=== PATIENT | female | born 1975 | race Caucasian/White ===

== ENCOUNTER 2018-07-26 22:03 | Emergency (ER) | payer MEDICAID ==
[~2018-07-26] VITALS: Ht 170.2 cm; Wt 100.0 kg
[2018-07-26] MEDS ORDERED: FAMOTIDINE 20MG/2ML VIAL IV STA (22:43)
[2018-07-26 23:02] LABS: CHLORIDE 97 mEq/L (98-107)
[2018-07-26 23:03] LABS: BASOPHILS % 0.6 % (0.0-2.0); EOSINOPHILS % 0.1 % (0.0-5.0); HEMATOCRIT. 27.8 % (36.0-48.0); HEMOGLOBIN. 8.4 g/dL (12.0-16.0); LYMPHOCYTES % 31.9 % (20.0-50.0); MEAN CORPUSCULAR HEMOGLOBIN 21.1 pg (28.0-32.0); MEAN CORPUSCULAR VOLUME 70.1 fL (81.0-99.0); MEAN PLATELET VOLUME 8.1 fl (7.4-10.4); MONOCYTES % 14.6 % (2.0-8.0); NEUTROPHILS % 52.8 % (40.0-76.0); PLATELET 300 x1000/uL (130-400); RED BLOOD CELL COUNT 3.97 mill/uL (4.2-5.4); RED CELL DISTRIBUTION WIDTH 16.5 % (11.6-14.6)
[2018-07-26 23:04] LABS: HCG SCREEN NEGATIVE
[2018-07-26] MEDS ORDERED: SODIUM CHLORIDE 0.9% 1,000 ML IV ONE (23:45)
[2018-07-26] MEDS ORDERED: ONDANSETRON HCL 4MG/2ML INJ IV ONE (23:45)
[2018-07-27] MEDS ORDERED: IOHEXOL-300 100 ML BOTTLE ONE (02:03)
[2018-07-27 02:49] LABS: CLARITY URINE CLEAR (CLEAR); COLOR URINE YELLOW (YELLOW); KETONES URINE 1+ (NEGATIVE); LEUKOCYTE ESTERASE URINE NEGATIVE (NEGATIVE); NITRITE URINE POSITIVE (NEGATIVE); OCCULT BLOOD URINE NEGATIVE (NEGATIVE); PH URINE 7.5 (4.5-8.0); PROTEIN URINE TRACE (NEGATIVE); SPECIFIC GRAVITY URINE 1.079 (1.005-1.030)
[2018-07-27 03:05] LABS: *AMPHETAMINES SCREEN URINE NEGATIVE (NEGATIVE); *BENZODIAZEPINES SCREEN URINE NEGATIVE (NEGATIVE); *COCAINE SCREEN URINE NEGATIVE (NEGATIVE); METHADONE URINE SCREEN NEGATIVE (NEGATIVE); OPIATES URINE SCREEN NEGATIVE (NEGATIVE)
[2018-07-27 03:06] LABS: PHENCYCLIDINE URINE SCREEN NEGATIVE (NEGATIVE)
[2018-07-27 03:08] LABS: *BARBITURATES SCREEN URINE PRESUMTIVE POSITIVE (NEGATIVE); CANNABINOID URINE SCREEN PRESUMTIVE POSITIVE (NEGATIVE)
[2018-07-27] MEDS ORDERED: HYDROCODONE/ACETAMINOPHEN 5/325MG TABLET PO ONE (04:15)
[2018-07-27 04:28] VITALS: BP 109/55
== END 2018-07-27 04:31 | disposition home or self-care (01) ==
LOC: ER 22:03
DX: I88.0 Nonspecific mesenteric lymphadenitis (principal); K21.0 Gastro-esophageal reflux disease with esophagitis; R10.13 Epigastric pain; Z90.49 Acquired absence of other specified parts of digestive tract; Z87.891 Personal history of nicotine dependence
CPT/HCPCS: 36415; 74177; 80053; 80305; 81003; 83690; 84703; 85025; 96374; 96375; 99284; J2405; J3490; J7030; Q9967; Z7610

== ENCOUNTER 2022-02-07 12:51 | Emergency (ER) | payer MEDICAID ==
[~2022-02-07] VITALS: Ht 170.2 cm; Wt 137.0 kg
[2022-02-07] MEDS ORDERED: IBUPROFEN 600MG TABLET PO STA (14:02)
[2022-02-07 15:30] LABS: CLARITY URINE CLEAR (CLEAR); COLOR URINE YELLOW (YELLOW); KETONES URINE NEGATIVE (NEGATIVE); LEUKOCYTE ESTERASE URINE TRACE (NEGATIVE); NITRITE URINE NEGATIVE (NEGATIVE); OCCULT BLOOD URINE NEGATIVE (NEGATIVE); PROTEIN URINE NEGATIVE (NEGATIVE); SPECIFIC GRAVITY URINE 1.006 (1.005-1.030); UROBILINOGEN URINE 0.2 E.U./dL (0.2-1.0)
[2022-02-07 15:42] LABS: BASOPHILS % 0.5 % (0.0-2.0); EOSINOPHILS % 0.1 % (0.0-5.0); HEMATOCRIT. 34.5 % (36.0-48.0); HEMOGLOBIN. 10.7 g/dL (12.0-16.0); LYMPHOCYTES % 27.3 % (20.0-50.0); MEAN CORPUSCULAR HEMOGLOBIN 21.8 pg (28.0-32.0); MEAN CORPUSCULAR VOLUME 70.7 fL (81.0-99.0); MEAN PLATELET VOLUME 8.9 fl (7.4-10.4); MONOCYTES % 9.8 % (2.0-8.0); NEUTROPHILS % 62.3 % (40.0-76.0); PLATELET 244 x1000/uL (130-400); RED BLOOD CELL COUNT 4.89 mill/uL (4.2-5.4); RED CELL DISTRIBUTION WIDTH 17.8 % (11.6-14.6)
[2022-02-07 16:01] LABS: CHLORIDE 104 mEq/L (98-107)
[2022-02-07] MEDS ORDERED: IBUP-2029 MT (16:42)
[2022-02-07 17:01] VITALS: BP 126/75
== END 2022-02-07 17:03 | disposition home or self-care (01) ==
LOC: ER 12:51
DX: R10.9 Unspecified abdominal pain (principal); N83.201 Unspecified ovarian cyst, right side; K21.9 Gastro-esophageal reflux disease without esophagitis; Z90.49 Acquired absence of other specified parts of digestive tract
CPT/HCPCS: 36415; 74176; 80053; 81003; 81025; 85025; 99284

== ENCOUNTER 2022-09-13 15:06 | Emergency (ER) | payer MEDICAID ==
[~2022-09-13] VITALS: Ht 170.2 cm; Wt 136.0 kg
[~2022-09-13 15:06] MED LIST: IBUP-2029 MT
[2022-09-13] MEDS ORDERED: MORPHINE SULFATE 4 MG/ML CPJ (NOT FOR IM USE) IV STA (15:59)
[2022-09-13] MEDS ORDERED: ONDANSETRON HCL 4MG/2ML INJ IV STA (15:59)
[2022-09-13] MEDS ORDERED: SODIUM CHLORIDE 0.9% 1,000 ML IV ONE (16:00)
[2022-09-13 16:15] LABS: BASOPHILS % 0.5 % (0.0-2.0); EOSINOPHILS % 0.1 % (0.0-5.0); HEMATOCRIT. 38.6 % (36.0-48.0); HEMOGLOBIN. 12.4 g/dL (12.0-16.0); LYMPHOCYTES % 19.8 % (20.0-50.0); MEAN CORPUSCULAR HEMOGLOBIN 22.3 pg (28.0-32.0); MEAN CORPUSCULAR VOLUME 69.4 fL (81.0-99.0); MEAN PLATELET VOLUME 8.8 fl (7.4-10.4); MONOCYTES % 8.6 % (2.0-8.0); PLATELET 338 x1000/uL (130-400); RED BLOOD CELL COUNT 5.57 mill/uL (4.2-5.4); RED CELL DISTRIBUTION WIDTH 17.7 % (11.6-14.6)
[2022-09-13 16:24] LABS: CHLORIDE 97 mEq/L (98-107)
[2022-09-13 16:26] LABS: HCG SCREEN NEGATIVE
[2022-09-13 16:42] LABS: PLATELET ESTIMATE NORMAL
[2022-09-13] MEDS ORDERED: POTASSIUM CHLORIDE 20MEQ TABLET SR PO ONE (18:30)
[2022-09-13 19:01] VITALS: BP 146/74
[2022-09-13] MEDS ORDERED: POTA-205 MT (19:41)
[2022-09-13] MEDS ORDERED: ONDA4TAB11 PO (20:03)
[2022-09-13] MEDS ORDERED: TOPUD MT (20:15)
== END 2022-09-13 20:46 | disposition home or self-care (01) ==
LOC: ER 15:06
DX: R10.9 Unspecified abdominal pain (principal); E87.6 Hypokalemia; Z87.19 Personal history of other diseases of the digestive system; Z90.49 Acquired absence of other specified parts of digestive tract
CPT/HCPCS: 36415; 71045; 74176; 80053; 83690; 83735; 84703; 85025; 93005; 96361; 96374; 96375; 99285; J2270; J2405; J7030; Z7610

== ENCOUNTER 2022-10-23 18:16 | Emergency (ER) | payer MEDICAID ==
[~2022-10-23] VITALS: Ht 170.2 cm; Wt 139.0 kg
[~2022-10-23 18:16] MED LIST changes: +ONDA4TAB11 PO; +POTA-205 MT; +TOPUD MT
[2022-10-23 18:55] LABS: BASOPHILS % 0.3 % (0.0-2.0); EOSINOPHILS % 0.1 % (0.0-5.0); HEMATOCRIT. 34.3 % (36.0-48.0); HEMOGLOBIN. 10.9 g/dL (12.0-16.0); LYMPHOCYTES % 22.9 % (20.0-50.0); MEAN CORPUSCULAR VOLUME 69.3 fL (81.0-99.0); MEAN PLATELET VOLUME 8.9 fl (7.4-10.4); MONOCYTES % 6.6 % (2.0-8.0); NEUTROPHILS % 70.1 % (40.0-76.0); PLATELET 201 x1000/uL (130-400); RED BLOOD CELL COUNT 4.95 mill/uL (4.2-5.4); RED CELL DISTRIBUTION WIDTH 17.4 % (11.6-14.6)
[2022-10-23 19:09] LABS: CHLORIDE 109 mEq/L (98-107)
[2022-10-23 19:34] LABS: PLATELET ESTIMATE NORMAL
[2022-10-23 19:45] LABS: CLARITY URINE CLEAR (CLEAR); COLOR URINE YELLOW (YELLOW); KETONES URINE NEGATIVE (NEGATIVE); LEUKOCYTE ESTERASE URINE NEGATIVE (NEGATIVE); NITRITE URINE NEGATIVE (NEGATIVE); OCCULT BLOOD URINE NEGATIVE (NEGATIVE); PROTEIN URINE NEGATIVE (NEGATIVE); SPECIFIC GRAVITY URINE 1.006 (1.005-1.030); UROBILINOGEN URINE 0.2 E.U./dL (0.2-1.0)
[2022-10-23] MEDS ORDERED: DIPHENHYDRAMINE 50MG/ML VIAL IV ONE (19:45)
[2022-10-23] MEDS ORDERED: PROCHLORPERAZINE 10MG/2ML VIAL IV PRN (19:45)
[2022-10-23] MEDS: SODIUM CHLORIDE 0.9% 1,000 ML IV NR ×3 (21:39→22:47)
[2022-10-23] MEDS ORDERED: SUCR1TAB MT (22:13)
[2022-10-23] MEDS ORDERED: PROT40 MT (22:13)
[2022-10-23] MEDS ORDERED: PANTOPRAZOLE SODIUM 40 MG/VIAL IV ONE (22:15)
[2022-10-23] MEDS ORDERED: SUCRALFATE 1G TABLET PO SCH (22:15)
[2022-10-23 22:56] VITALS: BP 112/58
== END 2022-10-24 00:44 | disposition home or self-care (01) ==
LOC: ER 18:16
DX: R10.84 Generalized abdominal pain (principal); R11.2 Nausea with vomiting, unspecified; Z90.89 Acquired absence of other organs
CPT/HCPCS: 36415; 80053; 81003; 81025; 83690; 84484; 85025; 93005; 96374; 96375; 99284; C9113; J1200

== ENCOUNTER 2024-02-14 15:06 | Inpatient (IN) | payer MEDICAID ==
[~2024-02-14] VITALS: Ht 167.6 cm; Wt 147.0 kg
[~2024-02-14 15:06] MED LIST changes: +CIPR-263 MT; +DOCU-138 MT; +FERR-71 MT; -IBUP-2029 MT; +LIP40 MT; +ONDA-239 PO; -ONDA4TAB11 PO; +PROT40 MT; +SUCR1TAB MT
[2024-02-14 15:45] LABS: BASOPHILS % 0.5 % (0.0-2.0); HEMATOCRIT. 29.8 % (36.0-48.0); HEMOGLOBIN. 9.3 g/dL (12.0-16.0); LYMPHOCYTES % 14.4 % (20.0-50.0); MEAN CORPUSCULAR HEMOGLOBIN 20.8 pg (28.0-32.0); MEAN CORPUSCULAR HGB CONC 31.2 g/dL (31.0-37.0); MEAN CORPUSCULAR VOLUME 66.5 fL (81.0-99.0); MEAN PLATELET VOLUME 8.8 fl (7.4-10.4); MONOCYTES % 3.3 % (2.0-8.0); NEUTROPHILS % 81.8 % (40.0-76.0); PLATELET 264 x1000/uL (130-400); RED BLOOD CELL COUNT 4.48 mill/uL (4.2-5.4); RED CELL DISTRIBUTION WIDTH 19.3 % (11.6-14.6); WHITE BLOOD COUNT 9.3 x1000/uL (4.5-11.0)
[2024-02-14 15:46] LABS: DIFFERENTIAL COMMENT 1
[2024-02-14 15:52] LABS: CHLORIDE 105 mEq/L (98-107); POTASSIUM 3.3 mEq/L (3.5-5.1); SODIUM 137 mEq/L (136-145)
[2024-02-14 15:53] LABS: CALCIUM 9.4 mg/dL (8.7-10.4); CARBON DIOXIDE 24 mEq/L (21-32)
[2024-02-14 15:58] LABS: CREATININE 0.7 mg/dL (0.6-1.0); GLUCOSE 117 mg/dL (70-105); UREA NITROGEN BLOOD 13 mg/dL (9-23)
[2024-02-14 16:00] LABS: ALANINE AMINOTRANSFERASE 27 IU/L (10-49); ALBUMIN 4.4 g/dL (3.2-4.8); ASPARTATE AMINOTRANSFERASE 47 IU/L (<34); BILIRUBIN DIRECT 0.2 mg/dL (<=3.0)
[2024-02-14 16:01] LABS: BILIRUBIN TOTAL 0.6 mg/dL (0.1-1.0); PROTEIN TOTAL 8.2 g/dL (6.0-8.3)
[2024-02-14] MEDS: METOCLOPRAMIDE HCL 10MG/2ML VIAL IV ONE (18:00)
[2024-02-14] MEDS: METOCLOPRAMIDE HCL 10MG/2ML VIAL IM ONE (18:38)
[2024-02-14] MEDS: SODIUM CHLORIDE 0.9% 1,000 ML IV ONE (19:39)
[2024-02-14 21:27] LABS: GLUCOSE URINE NEGATIVE (NEGATIVE); KETONES URINE 2+ (NEGATIVE)
[2024-02-14 21:32] LABS: CLARITY URINE CLOUDY (CLEAR); COLOR URINE RED (YELLOW)
[2024-02-14 21:33] LABS: OCCULT BLOOD URINE 3+ (NEGATIVE); PH URINE 5.5 (4.5-8.0); PROTEIN URINE 2+ (NEGATIVE); SPECIFIC GRAVITY URINE 1.023 (1.005-1.030)
[2024-02-14 21:34] LABS: LEUKOCYTE ESTERASE URINE 1+ (NEGATIVE); NITRITE URINE NEGATIVE (NEGATIVE); UROBILINOGEN URINE 0.2 E.U./dL (0.2-1.0)
[2024-02-14 21:45] LABS: BACTERIA URINE 1+; RBC URINE TNTC /hpf (0-2); SQUAMOUS EPITHELIAL CELL URINE 1+ /lpf (RARE/1+)
[2024-02-14] MEDS: PANTOPRAZOLE SODIUM 40 MG/VIAL IV SCH (21:48)
[2024-02-14] MEDS: METOCLOPRAMIDE HCL 10MG/2ML VIAL IV NR (23:08)
[2024-02-15] VITALS (7 sets, daily range): BP systolic 118–141; BP diastolic 52–86; PULSE 70–83; RESP 18–20; TEMP 36.114–37.28076; O2SAT 97–99
[2024-02-15] MEDS: ONDANSETRON HCL 4MG/2ML INJ IV PRN (02:45)
[2024-02-15] MEDS: DEXT 5%/0.45% NACL KCL 20MEQ/L 1,000 ML IV SCH (04:32)
[2024-02-15 06:04] LABS: BASOPHILS % 0.4 % (0.0-2.0); EOSINOPHILS % 0.2 % (0.0-5.0); HEMATOCRIT. 26.8 % (36.0-48.0); HEMOGLOBIN. 8.2 g/dL (12.0-16.0); LYMPHOCYTES % 44.7 % (20.0-50.0); MEAN CORPUSCULAR HEMOGLOBIN 20.4 pg (28.0-32.0); MEAN CORPUSCULAR HGB CONC 30.7 g/dL (31.0-37.0); MEAN CORPUSCULAR VOLUME 66.7 fL (81.0-99.0); MEAN PLATELET VOLUME 9.3 fl (7.4-10.4); MONOCYTES % 11.1 % (2.0-8.0); NEUTROPHILS % 43.6 % (40.0-76.0); PLATELET 218 x1000/uL (130-400); RED BLOOD CELL COUNT 4.03 mill/uL (4.2-5.4); RED CELL DISTRIBUTION WIDTH 19.4 % (11.6-14.6); WHITE BLOOD COUNT 7.9 x1000/uL (4.5-11.0)
[2024-02-15 06:05] LABS: CHLORIDE 107 mEq/L (98-107); POTASSIUM 2.9 mEq/L (3.5-5.1); SODIUM 139 mEq/L (136-145)
[2024-02-15 06:07] LABS: CALCIUM 9.1 mg/dL (8.7-10.4); CARBON DIOXIDE 25 mEq/L (21-32)
[2024-02-15 06:12] LABS: CREATININE 0.7 mg/dL (0.6-1.0); GLUCOSE 91 mg/dL (70-105); UREA NITROGEN BLOOD 11 mg/dL (9-23)
[2024-02-15 06:13] LABS: ALANINE AMINOTRANSFERASE 26 IU/L (10-49); ALBUMIN 3.9 g/dL (3.2-4.8); ASPARTATE AMINOTRANSFERASE 43 IU/L (<34)
[2024-02-15 06:14] LABS: BILIRUBIN DIRECT 0.2 mg/dL (<=3.0); BILIRUBIN TOTAL 0.6 mg/dL (0.1-1.0); PROTEIN TOTAL 7.3 g/dL (6.0-8.3)
[2024-02-15 07:10] LABS: DIFFERENTIAL COMMENT 1
[2024-02-15 07:31] LABS: ADD RBC MORPHOLOGY YES
[2024-02-15] MEDS: PANTOPRAZOLE SODIUM 40 MG/VIAL IV SCH (08:55)
[2024-02-15] MEDS: KETOROLAC 15MG/ML VIAL IV NR (11:25)
[2024-02-15 12:06] LABS: MICROCYTOSIS 2+; PLATELET ESTIMATE NORMAL
[2024-02-15 14:31] LABS: *AMPHETAMINES SCREEN URINE NEGATIVE (NEGATIVE)
[2024-02-15 14:32] LABS: *BARBITURATES SCREEN URINE NEGATIVE (NEGATIVE); *BENZODIAZEPINES SCREEN URINE NEGATIVE (NEGATIVE); *COCAINE SCREEN URINE NEGATIVE (NEGATIVE)
[2024-02-15 14:33] LABS: CANNABINOID URINE SCREEN PRESUMPTIVE POSITIVE (NEGATIVE); ECSTASY MDMA SCREEN URINE NEGATIVE (NEGATIVE); METHADONE URINE SCREEN NEGATIVE (NEGATIVE); OPIATES URINE SCREEN PRESUMPTIVE POSITIVE (NEGATIVE); PHENCYCLIDINE URINE SCREEN NEGATIVE (NEGATIVE)
[2024-02-16] VITALS: BP 129/69; PULSE 70; RESP 18; TEMP 36.55848; O2SAT 100
[2024-02-16] MEDS: ACETAMINOPHEN 325MG TABLET PO PRN (02:40)
[2024-02-16 06:31] LABS: CHLORIDE 108 mEq/L (98-107); SODIUM 140 mEq/L (136-145)
[2024-02-16 06:33] LABS: CARBON DIOXIDE 24 mEq/L (21-32)
[2024-02-16 06:39] LABS: CREATININE 0.6 mg/dL (0.6-1.0); GLUCOSE 88 mg/dL (70-105); UREA NITROGEN BLOOD 8 mg/dL (9-23)
[2024-02-16 06:40] LABS: ALANINE AMINOTRANSFERASE 31 IU/L (10-49)
[2024-02-16 06:41] LABS: ALBUMIN 3.8 g/dL (3.2-4.8); ASPARTATE AMINOTRANSFERASE 45 IU/L (<34); BILIRUBIN DIRECT 0.2 mg/dL (<=3.0); BILIRUBIN TOTAL 0.5 mg/dL (0.1-1.0); PROTEIN TOTAL 6.7 g/dL (6.0-8.3)
[2024-02-16 06:43] LABS: BASOPHILS % 0.5 % (0.0-2.0); EOSINOPHILS % 0.9 % (0.0-5.0); HEMATOCRIT. 25.4 % (36.0-48.0); HEMOGLOBIN. 7.7 g/dL (12.0-16.0); LYMPHOCYTES % 45.2 % (20.0-50.0); MEAN CORPUSCULAR HEMOGLOBIN 20.3 pg (28.0-32.0); MEAN CORPUSCULAR HGB CONC 30.2 g/dL (31.0-37.0); MEAN CORPUSCULAR VOLUME 67.4 fL (81.0-99.0); MEAN PLATELET VOLUME 9.3 fl (7.4-10.4); MONOCYTES % 11.1 % (2.0-8.0); NEUTROPHILS % 42.3 % (40.0-76.0); PLATELET 198 x1000/uL (130-400); RED BLOOD CELL COUNT 3.77 mill/uL (4.2-5.4); RED CELL DISTRIBUTION WIDTH 18.6 % (11.6-14.6); WHITE BLOOD COUNT 6.1 x1000/uL (4.5-11.0)
[2024-02-16 07:16] LABS: DIFFERENTIAL COMMENT 1
[2024-02-16 08:00] VITALS: BP 120/62; PULSE 79; RESP 18; TEMP 35.5584; O2SAT 100
[2024-02-16] MEDS: POTASSIUM CHLORIDE 20MEQ TABLET SR PO NR (10:36)
[2024-02-16] MEDS: LORAZEPAM 1MG TABLET PO PRN (10:37)
[2024-02-16 12:00] VITALS: BP 144/89; PULSE 72; RESP 18; TEMP 36.61404; O2SAT 100
[2024-02-16] MEDS: METOCLOPRAMIDE HCL 10MG/2ML VIAL IV SCH (13:44)
[2024-02-16] MEDS ORDERED: METOCLOPRAMIDE HCL 10MG/2ML VIAL IV SCH (15:00)
[2024-02-16 16:00] VITALS: BP 141/83; PULSE 69; RESP 18; TEMP 36.50292; O2SAT 97
[2024-02-16 20:00] VITALS: BP 185/92; PULSE 79; RESP 18; TEMP 37.503; O2SAT 98
[2024-02-16] MEDS: CEFTRIAXONE 1GM/50ML 50 ML IV SCH (21:37)
[2024-02-16] MEDS: IRON SUCROSE COMPLEX 100 MG/5 ML ML IV SCH (21:38)
[2024-02-16] MEDS: DICYCLOMINE HCL 10MG CAPSULE PO SCH (23:59)
[2024-02-17] VITALS (8 sets, daily range): BP systolic 110–176; BP diastolic 59–90; PULSE 79–94; RESP 18–22; TEMP 36.50292–37.503; O2SAT 98–99
[2024-02-17] MEDS: HYDRALAZINE 20MG/ML VIAL IV PRN (02:17)
[2024-02-17 10:55] LABS: HEMATOCRIT 27.5 % (36.0-48.0); HEMOGLOBIN 8.5 g/dL (12.0-16.0); MEAN CORPUSCULAR HEMOGLOBIN 20.9 pg (28.0-32.0); MEAN CORPUSCULAR HGB CONC 31.1 g/dL (31.0-37.0); MEAN CORPUSCULAR VOLUME 67.3 fL (81.0-99.0); PLATELET 230 x1000/uL (130-400); RED BLOOD CELL COUNT 4.08 mill/uL (4.2-5.4); WHITE BLOOD COUNT 5.3 x1000/uL (4.5-11.0)
[2024-02-17 11:01] LABS: CALCIUM 8.8 mg/dL (8.7-10.4); CARBON DIOXIDE 26 mEq/L (21-32); CHLORIDE 105 mEq/L (98-107); POTASSIUM 2.9 mEq/L (3.5-5.1); SODIUM 136 mEq/L (136-145)
[2024-02-17 11:07] LABS: CREATININE 0.7 mg/dL (0.6-1.0); GLUCOSE 114 mg/dL (70-105)
[2024-02-17 11:14] LABS: UREA NITROGEN BLOOD < 5 mg/dL (9-23)
[2024-02-17] MEDS: KCL 20MEQ/100ML PREMIX 100 ML IV SCH (13:29)
[2024-02-18] VITALS: BP 108/65; PULSE 81; RESP 20; TEMP 36.55848; O2SAT 98
[2024-02-18 03:26] LABS: BASOPHILS % 0.7 % (0.0-2.0); EOSINOPHILS % 0.2 % (0.0-5.0); HEMATOCRIT. 28.7 % (36.0-48.0); HEMOGLOBIN. 8.5 g/dL (12.0-16.0); LYMPHOCYTES % 44.5 % (20.0-50.0); MEAN CORPUSCULAR HEMOGLOBIN 20.3 pg (28.0-32.0); MEAN CORPUSCULAR HGB CONC 29.7 g/dL (31.0-37.0); MEAN CORPUSCULAR VOLUME 68.5 fL (81.0-99.0); MEAN PLATELET VOLUME 9.1 fl (7.4-10.4); MONOCYTES % 12.9 % (2.0-8.0); NEUTROPHILS % 41.7 % (40.0-76.0); PLATELET 237 x1000/uL (130-400); RED BLOOD CELL COUNT 4.19 mill/uL (4.2-5.4); RED CELL DISTRIBUTION WIDTH 19.5 % (11.6-14.6); WHITE BLOOD COUNT 6.3 x1000/uL (4.5-11.0)
[2024-02-18 03:27] LABS: CHLORIDE 104 mEq/L (98-107); SODIUM 137 mEq/L (136-145)
[2024-02-18 03:28] LABS: CARBON DIOXIDE 26 mEq/L (21-32)
[2024-02-18 03:33] LABS: CREATININE 0.8 mg/dL (0.6-1.0); GLUCOSE 89 mg/dL (70-105); PROTHROMBIN TIME 11.4 sec (9.6-11.0); UREA NITROGEN BLOOD 6 mg/dL (9-23)
[2024-02-18 03:52] LABS: DIFFERENTIAL COMMENT 1
[2024-02-18 04:00] VITALS: BP 114/79; PULSE 85; RESP 20; TEMP 36.3918; O2SAT 98
[2024-02-18 08:00] VITALS: BP 116/57; PULSE 68; RESP 20; TEMP 36.72516; O2SAT 97
[2024-02-18] MEDS: KCL 10MEQ/50ML PREMIX 50 ML IV SCH (09:00)
[2024-02-18] MEDS ORDERED: PROPOFOL 200MG/20ML VIAL IV ONE (10:43)
[2024-02-18] MEDS: ONDANSETRON HCL 4MG/2ML INJ IV PRN (11:17)
[2024-02-18 12:50] VITALS: BP 148/67; PULSE 75; RESP 18; TEMP 36.72516; O2SAT 98
[2024-02-18 13:10] LABS: POTASSIUM 3.2 mEq/L (3.5-5.1)
[2024-02-18 13:15] LABS: IRON 281 ug/dL (50-170)
[2024-02-18 13:18] LABS: TOTAL IRON BINDING CAPACITY 371 ug/dl (250-425)
[2024-02-18 13:20] LABS: FERRITIN 117 ng/mL (10-291); FOLIC ACID (FOLATE) SERUM > 20.00 ng/mL (>5.38); VITAMIN B12 SERUM 801 pg/mL (211-911)
[2024-02-18] MEDS: MORPHINE SULFATE 2 MG/ML INJ (NOT FOR IM USE) IV SCH (13:48)
[2024-02-18 16:00] VITALS: BP 138/88; PULSE 74; RESP 18; TEMP 36.61404; O2SAT 99
[2024-02-18 20:00] VITALS: BP 128/68; PULSE 82; RESP 18; TEMP 36.55848; O2SAT 98
[2024-02-19] VITALS: BP 114/70; PULSE 79; RESP 19; TEMP 36.72516; O2SAT 98
[2024-02-19 04:00] VITALS: BP 120/63; PULSE 84; RESP 18; TEMP 36.3918; O2SAT 98
[2024-02-19 07:43] VITALS: BP 131/68; PULSE 86; RESP 18; TEMP 36.61404; O2SAT 99
[2024-02-19 12:00] VITALS: BP 135/60; PULSE 86; RESP 18; TEMP 35.5584; O2SAT 98
[2024-02-19 13:29] LABS: CHLORIDE 102 mEq/L (98-107); POTASSIUM 3.1 mEq/L (3.5-5.1); SODIUM 136 mEq/L (136-145)
[2024-02-19 13:30] LABS: CALCIUM 9.6 mg/dL (8.7-10.4); CARBON DIOXIDE 25 mEq/L (21-32)
[2024-02-19 13:35] LABS: CREATININE 0.8 mg/dL (0.6-1.0); GLUCOSE 98 mg/dL (70-105); UREA NITROGEN BLOOD 9 mg/dL (9-23)
[2024-02-19] MEDS ORDERED: CIPR-263 MT (15:30)
[2024-02-19] MEDS ORDERED: PROT40 MT (15:30)
[2024-02-19 15:38] VITALS: BP 20/135; PULSE 86; TEMP 96; O2SAT 60
[2024-02-19] MEDS ORDERED: DICY-18 PO (15:58)
[2024-02-19 17:06] VITALS: BP 136/78; PULSE 85; RESP 20; TEMP 35.89176; O2SAT 98
== END 2024-02-19 18:50 | disposition home or self-care (01) | DRG 241 ==
LOC: ER 15:13 → 5WST 21:36 → EDBEDREQTM 21:49 → EDBEDREQ 21:49 → 8WST 02-15 02:42
PROVIDERS: ADMIT Internal Medicine; ATTEND Internal Medicine
PROC: 0DB78ZX Excision of Stomach, Pylorus, Via Natural or Artificial Opening Endoscopic, Diagnostic (ICD-10-PCS; principal; 2024-02-18)
DX: K29.70 Gastritis, unspecified, without bleeding (principal); I85.00 Esophageal varices without bleeding; K76.0 Fatty (change of) liver, not elsewhere classified; N39.0 Urinary tract infection, site not specified; K81.9 Cholecystitis, unspecified; D50.9 Iron deficiency anemia, unspecified; Z20.822 Contact with and (suspected) exposure to COVID-19; R11.2 Nausea with vomiting, unspecified; E66.01 Morbid (severe) obesity due to excess calories; N92.0 Excessive and frequent menstruation with regular cycle; E87.6 Hypokalemia; Z87.440 Personal history of urinary (tract) infections; Z90.49 Acquired absence of other specified parts of digestive tract; Z90.81 Acquired absence of spleen; Z68.43 Body mass index [BMI] 50.0-59.9, adult
CPT/HCPCS: 36415; 74018; 76700; 80048; 80076; 80305; 81003; 82607; 82728; 82746; 83540; 83550; 84132; 85025; 85027; 85044; 88305; 88312; 88313; 99285; J0360; J0696; J1885; J2270; J2405; J2470; J2704; J2765; J3480; J7030